=== PATIENT | male | born 1990 | race Caucasian/White ===

== ENCOUNTER 2022-10-12 22:18 | Emergency (ER) | payer MEDICAID, OTHER ==
[2022-10-12 22:32] VITALS: BP 153/80; PULSE 81; O2SAT 98
[2022-10-13] MEDS ORDERED: Rocephin 1000 MG INJ IM ONE (00:45)
--- NOTE | 2022-10-13 00:50 | ERPHSYRPT ---
- History of Present Illness Time Seen by Provider: 10/13/22 00:47 Source: patient Exam Limitations: no limitations Patient Subjective Stated Complaint: Pt reports "I broke my front tooth off in the top and I think I have an abcess." Triage Nursing Assessment: Pt alert and oriented x3. No apparent respiratory distress. Ambulated to ED cot without difficulty. Skin w/p/d. Front upper tooth is broken off, blacken in color, no bleeding noted. Physician History: Patient 32-year-old male presents to our ED for evaluation of dental abscess. Patient believes he is got a dental abscess. Patient has carious teeth. Tooth #9 central incisor is carious. The gingiva just proximal to this incisor is swollen tender erythematous. No trauma. No fever. No nausea vomiting or diaphoresis. Symptoms are progressive. Symptoms are moderate in intensity. Palpation and mastication reproduce pain. Patient voices no other complaints or concerns at this time Portions of this note were created with voice recognition technology. There may be grammatical, spelling, punctuation or sound alike errors Timing/Duration: day(s) Severity: moderate (3 days) Modifying Factors: Improves With: other (Desiccation palpation reproduce pain.) Associated Symptoms: denies symptoms Allergies/Adverse Reactions: No Known Drug Allergies Allergy (Unverified 10/12/22 22:24) Hx Tetanus, Diphtheria Vaccination/Date Given: Yes Hx Influenza Vaccination/Date Given: Yes Hx Pneumococcal Vaccination/Date Given: No Travel Risk - International Travel Have you traveled outside of the country in past 3 weeks: No - Coronavirus Screening Are you exhibiting any of the following symptoms?: No Close contact with a COVID-19 positive Pt in past 14-21 Days: No - Vaccine Status Have you recieved a Covid-19 vaccination: Yes [employer]: [email or web address] - Vaccination Dates Date of 2cond Vaccination (if applicable): unknown - Review of Systems Constitutional: No Symptoms, No Fever, No Chills Eyes: No Symptoms Ears, Nose, & Throat: No Symptoms Respiratory: No Symptoms, No Cough, No Dyspnea Cardiac: No Symptoms, No Chest Pain, No Edema, No Syncope Abdominal/Gastrointestinal: No Symptoms, No Abdominal Pain, No Nausea, No Vomiting, No Diarrhea Genitourinary Symptoms: No Symptoms, No Dysuria Musculoskeletal: No Symptoms, No Back Pain, No Neck Pain Skin: No Symptoms, No Rash Neurological: No Symptoms, No Dizziness, No Focal Weakness, No Sensory Changes Psychological: No Symptoms Endocrine: No Symptoms Hematologic/Lymphatic: No Symptoms Immunological/Allergic: No Symptoms All Other Systems: Reviewed and Negative - Past Medical History Pertinent Past Medical History: No - Past Surgical History Past Surgical History: Yes Other Surgical History: wisdom teeth removal - Social History Smoking Status: Current every day smoker Exposure to second hand smoke: Yes Drug Use: none Patient Lives Alone: No - Nursing Vital Signs Nursing Vital Signs: Initial Vital Signs Temperature 98 F 10/12/22 22:24 Pulse Rate 81 10/12/22 22:24 Respiratory Rate 16 10/12/22 22:24 Blood Pressure 153/80 10/12/22 22:24 O2 Sat by Pulse Oximetry 98 10/12/22 22:24 Pain Scale Pain Intensity 5 - Physical Exam General Appearance: no apparent distress, alert Eye Exam: PERRL/EOMI, eyes nml inspection Ears, Nose, Throat Exam: normal ENT inspection, TMs normal, pharynx normal, moist mucous membranes Neck Exam: normal inspection, non-tender, supple, full range of motion Respiratory Exam: normal breath sounds, lungs clear, No respiratory distress Cardiovascular Exam: regular rate/rhythm, normal heart sounds, normal peripheral pulses Gastrointestinal/Abdomen Exam: soft, normal bowel sounds, No tenderness, No mass Back Exam: normal inspection, normal range of motion, No CVA tenderness, No vertebral tenderness Extremity Exam: normal inspection, normal range of motion, pelvis stable Neurologic Exam: alert, oriented x 3, cooperative, normal mood/affect, sensation nml, No motor deficits Skin Exam: normal color, warm, dry, No rash Lymphatic Exam: No adenopathy SpO2 Interpretation: normal SpO2: 98 O2 Delivery: Room Air - Course Nursing assessment & vital signs reviewed: Yes - Progress Progress: improved Progress Note: Patient is a 32-year-old male presents emergency department for evaluation of dental abscess. Symptoms have been ongoing progressively worsening over the past 3 days. Physical exam reveals a dental abscess swelling and tenderness at gingiva just adjacent to the tooth #9, central incisor. Patient's problem is acute. Problems uncomplicated. No systemic manifestations. Complexity of problems addressed is low. No critical care time. Complexity of data analyzed is none. No specialized testing ordered. Diagnosis made based on history and physical examination. Risk of complication and or risk morbidity/mortality of patient management is moderate. A prescription for Keflex forwarded to patient's pharmacy. Patient received a dose of IM Rocephin in our ED. Patient will be discharged home. Plan of care made based on medical decision making model. Patient states he will follow-up with a dentist within 48 hours for reevaluation. Vital stable. Patient received a dose of Toradol for pain control. Patient feels better. Patient is ready for discharge. Patient voices no other complaints or concerns at this time. Portions of this note were created with voice recognition technology. There may be grammatical, spelling, punctuation or sound alike errors A prescription for Toradol pain control was forwarded to patient's pharmacy. 10/13/22 00:51 10/13/22 00:57 Counseled pt/family regarding: diagnosis, need for follow-up - Departure Departure Disposition: Home Clinical Impression: Dental abscess, Pain, dental, Carious teeth Condition: Stable Critical Care Time: No Referrals: DOCTOR,NO FAMILY [Primary Care Provider] - Follow up/PCP as directed YANICK GONZALEZ MD [ACTIVE STAFF] - Follow up/PCP as directed Additional Instructions: Discharge/Care Plan EDMUNDO NEELY was seen on 10/13/22 in the Emergency Room. The patient was counseled regarding Diagnosis,Lab results, Imaging studies, need for follow up and when to return to the Emergency Room. Prescriptions given: Discharge Note I have spoken with the patient and/or caregivers. I have explained the patient's condition, diagnosis and treatment plan based on the information available to me at this time. I have answered the patient's and/or caregiver's questions and addressed any concerns. The patient and/or caregivers have as good understanding of the patient's diagnosis, condition and treatment plan as can be expected at this point. The vital signs have been stable. The patient's condition is stable and appropriate for discharge from the emergency department. The patient will pursue further outpatient evaluation with the primary care physician or other designated or consulting physician as outlined in the discharge instructions. The patient and/or caregivers are agreeable to this plan of care and follow-up instructions have been explained in detail. The patient and/or caregivers have received these instruction. The patient/and or caregivers are aware that any significant change in condition or worsening of symptoms should prompt an immediate return to this or the closest emergency department or call 911. Prescriptions: Amox Tr/Potass Clav. 875 mg [Augmentin 875-125 Tablet] 875 mg PO BID 7 Days #14 tablet Ketorolac Trometh 10 mg Tab [TORAdol 10 MG TABLET] 10 mg PO TID 5 Days #15 tablet
[2022-10-13] MEDS ORDERED: Rocephin 1000 MG INJ ONE (01:03)
== END 2022-10-13 01:22 | disposition home or self-care (01) ==
LOC: ED 22:18
DX: K04.7 Periapical abscess without sinus (principal); K08.89 Other specified disorders of teeth and supporting structures; K02.9 Dental caries, unspecified; Z72.0 Tobacco use
CPT/HCPCS: 96372; 99283; J0696